=== PATIENT | female | born 1980 | race Caucasian/White ===

== ENCOUNTER 2018-10-17 21:19 | Emergency (ER) | payer BC, SELFPAY ==
[2018-10-17 21:25] VITALS: BP 120/66; PULSE 67; RESP 14; TEMP 36.8; O2SAT 100; BMI 19.3
--- NOTE | 2018-10-17 22:00 | ED.WOUNDLAC ---
HPI - Wound/Laceration General Chief Complaint: Wound/Laceration Stated Complaint: laceration to left wrist from a kitchen knife Time Seen by Provider: 10/17/18 21:31 Source: patient Mode of arrival: ambulatory Limitations: no limitations History of Present Illness HPI narrative: patient is a 38-year-old female who presents with left wrist laceration. She says that she just sharp in her kitchen knife she was using them when she cut her wrist. She has no numbness or tingling or decreased range of motion. He can obviously see her tendon. EMS did give her a dressing, and recommended she come to the ED for stitches. Onset (ago): hour(s) Related Data Home Medications Medication Instructions Recorded Confirmed CA PANTOTHENATE/FOLIC ACID/VIT 1 tab PO QDAY #0 12/13/12 (MULTIVITAMIN) ferrous sulfate [Iron (ferrous 325 mg PO QDAY #0 09/20/16 sulfate)] VITAMIN D 400 mg PO Q DAY #0 09/30/16 vitamin B complex [B 1 tab PO QDAY #0 09/30/16 Complex-Vitamin B12] acetaminophen 325 mg PO PRN PRN #0 11/11/16 Previous Rx's Medication Instructions Recorded etonogestrel-ethinyl estradiol 1 icr VG Q28D #1 09/20/16 [NuvaRing] mupirocin 2 % TOPICAL QID #1 gm 11/11/16 fluticasone [Flonase Allergy 0 INTRANASAL SEE INSTRUCTIONS #1 12/08/16 Relief] bot buspirone 10 mg PO BID #60 tab 01/03/17 trazodone 100 mg PO HS #90 tab 01/03/17 hydrocortisone 1 tong TOPICAL BID #30 gm 02/08/17 hydrocortisone acetate 30 mg RC HS #12 supp 02/08/17 albuterol sulfate [Proventil HFA] 0.09 mg IH Q4HP PRN #1 inh 05/02/17 Allergies Allergy/AdvReac Type Severity Reaction Status Date / Time hydrocodone [HYDROCODONE] Allergy Mild NAUSEA,VOMI Verified 10/17/18 21:34 TING,ITCHIN G paroxetine [PAROXETINE] AdvReac Unknown HYPERACTIVE Verified 10/17/18 21:34 ENERGY Review of Systems Review of Systems GENERAL: Denies chills,fever HEENT: Denies throat pain RESPIRATORY: Denies dyspnea, cough, wheezing CARDIOVASCULAR: Denies chest pain, palpitations GASTROINTESTINAL: Denies nausea, vomiting MUSCULOSKELETAL: Denies extremity pain, injury SKIN: Laceration NEUROLOGIC: Denies weakness, dizziness, headache, numbness 8 point review of systems is negative except for those stated above and HPI PFSH Surgical History Status post bunionectomy Status post delivery Family History Mother Age: 56 Breast cancer Social History Smoking Status: Never smoker Family History Mother Age: 56 Breast cancer Social History Smoking Status: Never smoker Exam Initial Vital Signs Initial Vital Signs: Vital Signs Temperature 98.2 F 10/17/18 21:25 Pulse Rate 67 10/17/18 21:25 Respiratory Rate 14 10/17/18 21:25 Blood Pressure 120/66 10/17/18 21:25 Pulse Oximetry 100 10/17/18 21:25 GENERAL: Well-appearing, well-nourished and in no acute distress. CARDIOVASCULAR: peripheral pulses in tact, cap refill <2 sec RESPIRATORY: No respiratory distress, speaks in full sentences without difficulty EXTREMITIES: Normal range of motion, no clubbing or edema. Neurovascularly intact NEUROLOGICAL: Cranial nerves II through XII grossly intact. Normal gait and speech. SKIN: 5 cm laceration to anterior distal wrist. Flexor tendon is identified fully intact. Full range of motion at wrist neurovascularly intact Procedures Laceration Repair Laceration 1: Site: upper extremity Side (If applicable): right Size (cm): 5 Description: linear Depth: simple, single layer Local Anesthetic: lidocaine 2% Amount of anesthesia used (mL): 4 Pre-repair: wound explored, irrigated extensively and deep structures intact ( tendon seen identified and intact) Skin layer closed with: nylon Size (cm): 4-0 Number of sutures: 5 Technique: simple, interrupted Course Vital Signs - 8 hr 10/17/18 21:25 10/17/18 22:15 Temperature 98.2 F Pulse Rate 67 69 Respiratory Rate 14 16 Blood Pressure 120/66 120/62 Pulse Oximetry 100 99 Discharge Plan Departure Patient Disposition: Home Clinical Impression: Laceration of left wrist Qualifiers: Encounter type: initial encounter Qualified Code(s): S61.512A - Laceration without foreign body of left wrist, initial encounter Discharge Date/Time: 10/17/18 22:15 Interventions: ED Discharge Assessment Last Done: 10/17/18 22:15 Instructions: DI for Laceration Repair -- Simple Activity Restrictions/Additional Instructions: 1. Have your suture removed in 5-7 days, you may go to walk-in clinic, return to the ER or call your primary care physician. 2. No soaking in water including dishes, bathtubs, Lakes, swimming pools etc 3. Signs of infection include, but not limited to, increased redness, increased swelling, increased pain, fever and purulent drainage, if the symptoms should arise, you may need an antibiotic and you should have a reevaluation either by your primary care provider or by the emergency department. Prescriptions: No Action CA PANTOTHENATE/FOLIC ACID/VIT (MULTIVITAMIN) 1 tab PO QDAY Qty: 0 RF: 0 ferrous sulfate [Iron (ferrous sulfate)] 325 MG tablet 325 mg PO QDAY Qty: 0 RF: 0 etonogestrel-ethinyl estradiol [NuvaRing] 1 EACH ring 1 icr VG Q28D Qty: 1 RF: 11 VITAMIN D 400 mg PO Q DAY Qty: 0 RF: 0 vitamin B complex [B Complex-Vitamin B12] 1 EACH tablet 1 tab PO QDAY Qty: 0 RF: 0 acetaminophen 325 MG tablet 325 mg PO PRN PRNQty: 0 RF: 0 mupirocin 2 % ointment 2 % Topical QID Qty: 1 RF: 1 fluticasone [Flonase Allergy Relief] 9.9 ML spray,suspension Intranasal SEE INSTRUCTIONS Qty: 1 RF: 0 trazodone 100 MG tablet 100 mg PO HS Qty: 90 RF: 1 buspirone 10 MG tablet 10 mg PO BID Qty: 60 RF: 2 hydrocortisone acetate 30 MG suppository 30 mg RC HS Qty: 12 RF: 0 hydrocortisone 2.5 % cream 1 tong Topical BID Qty: 30 RF: 1 albuterol sulfate [Proventil HFA] 90 MCG/PUFF HFA aerosol inhaler 0.09 mg IH Q4HP PRNQty: 1 RF: 2 Referrals: Valencia Irizarry ARNP [Primary Care Provider] -
[2018-10-17 22:15] VITALS: BP 120/62; PULSE 69; RESP 16; O2SAT 99
== END 2018-10-17 22:15 | disposition home or self-care (01) ==
PROVIDERS: Emergency Provider Emergency Medicine; Family Provider Family Medicine; PCP Nurse Practitioner
DX: S61.512A Laceration without foreign body of left wrist, initial encounter (principal); W26.0XXA Contact with knife, initial encounter
CPT/HCPCS: 12002; 99283